=== PATIENT | male | born 1960 | race African-American/Black ===

== ENCOUNTER 2023-06-22 16:22 | Emergency (ER) | payer OTHER ==
[~2023-06-22] VITALS: Ht 170.2 cm; Wt 72.6 kg
[2023-06-22 16:42] VITALS: BP 156/73; PULSE 67; RESP 18; TEMP 98.3; O2SAT 98
== END 2023-06-22 17:29 | disposition left against medical advice (07) ==
LOC: MED 16:22
DX: H53.8 Other visual disturbances (principal); Z53.21 Procedure and treatment not carried out due to patient leaving prior to being seen by health care provider
CPT/HCPCS: 99281

== ENCOUNTER 2023-06-24 20:55 | Emergency (ER) | payer OTHER ==
[~2023-06-24] VITALS: Ht 182.9 cm; Wt 77.1 kg
[2023-06-24 20:59] VITALS: BP 140/65; PULSE 60; RESP 16; TEMP 97.3; O2SAT 100
[2023-06-24 22:25] VITALS: BP 140/65; PULSE 60; RESP 16; TEMP 97.3; O2SAT 100
== END 2023-06-24 22:25 | disposition home or self-care (01) ==
LOC: MED 20:55
DX: R56.9 Unspecified convulsions (principal)
CPT/HCPCS: 99283